=== PATIENT | male | born 1935 | race Hispanic/Latino ===

== ENCOUNTER → 2018-07-29 | Day surgery (SDC) | payer MEDICARE, OTHER ==
[2018-07-27 16:22] LABS: BASOPHILS # (AUTO) 0.1 (0.0-0.1); EOSINOPHILS # (AUTO) 0.1 (0.0-0.4); HEMATOCRIT 41.3 % (38.2-49.6); LYMPHOCYTES # (AUTO) 1.5 (1.0-3.2); LYMPHOCYTES % 19.2 % (18.0-39.1); MEAN CORPUSCULAR HEMOGLOBIN 28.7 pg (28-32); MEAN CORPUSCULAR HGB CONC 31.5 g/dL (31-35); MEAN CORPUSCULAR VOLUME 91.2 fL (81-99); MONOCYTES # (AUTO) 0.6 (0.2-0.8); MONOCYTES % 7.1 % (4.4-11.3); NEUTROPHILS # (AUTO) 5.6 (2.1-6.9); NEUTROPHILS % 71.4 % (38.7-80.0); PLATELET COUNT 160 x10e3/uL (140-360); RED BLOOD COUNT 4.53 x10e6/uL (4.3-5.7); RED CELL DISTRIBUTION WIDTH 14.4 % (11.7-14.4)
--- NOTE | 2018-07-27 16:25 | Diagnostic Imaging Report ---
EXAMINATION: CHEST 2 VIEWS INDICATION: Pre-op for port placement. COMPARISON: None FINDINGS: TUBES and LINES: None. LUNGS: Lungs are well inflated. A 6 mm nodular opacity projects over the left midlung. There is no evidence of pneumonia or pulmonary edema. PLEURA: No pleural effusion or pneumothorax. HEART AND MEDIASTINUM: The cardiomediastinal silhouette is unremarkable. BONES AND SOFT TISSUES: No acute osseous lesion. Soft tissues are unremarkable. UPPER ABDOMEN: No free air under the diaphragm. IMPRESSION: No acute radiographic abnormality. A 6 mm nodular opacity in the left midlung, could reflect a pulmonary nodule. A non-urgent chest CT is suggested for further evaluation. Signed by: Dr. Jj Zarate MD on 07/27/2018 4:22 PM
[2018-07-27 16:38] LABS: ANION GAP 15.6 mmol/L (8-16); BLOOD UREA NITROGEN 15 mg/dL (7-26); BUN/CREATININE RATIO 17 (6-25); CALCIUM 9.3 mg/dL (8.4-10.2); CARBON DIOXIDE 20 mmol/L (22-29); CHLORIDE 107 mmol/L (98-107); EST GLOMERULAR FILTRATION RATE > 60 ML/MIN (60-); GLUCOSE 87 mg/dL (74-118); POTASSIUM 4.6 mmol/L (3.5-5.1); SODIUM 138 mmol/L (136-145)
[~2018-07-29] MED LIST: AMLODIPINE BES2.5 MG PO; ATENOLOL50 MG PO; BUPIVACAINE 0.25% 30ML SDV INJ ONE; DEXAMETHASONE SOD PHOS INJ 4 MG/ML VIAL ONE; EPHEDRINE SULFATE INJ 50 MG/10 ML SYR ONE; FENTANYL CITRATE/PF 100MCG/2 ML INJ ONE; HEPARIN SOD (PORCINE) 5,000 UNIT/ML VIAL ONE; LIDOCAINE HCL 1% LOCAL INJ 20 ML VIAL ONE; LIDOCAINE HCL 2% LOCAL INJ 5 ML SDV VIAL INJ ONE; MIDAZOLAM HCL 2 MG/2 ML VIAL ONE; ONDANSETRON HCL INJ 2 MG/ML VIAL ONE; PROPOFOL IV EMULSION 10 MG/ML 20 ML VIAL ONE; SEVOFLURANE INHAL SOLN 250 ML PEN BTL ONE; SODIUM CHLORIDE 0.9% 500ML 500 ML ONE
--- OUTSIDE RECORDS SUMMARY | 2018-07-29 09:03 | XMS REPORT ---
Author Author [facility] Address Unknown Phone Unavailable Care Team Providers Care Bacteriologist Food Name Role Phone MARCUS COREAS PP Unavailable Jose COTTO Unavailable Unavailable Ryland COREAS Unavailable Unavailable Payers Payer Name Policy Type Policy Number Effective Date Expiration Date Problems This patient has no known problems. Allergies, Adverse Reactions, Alerts Allergy Name Allergy Type Status Severity Reaction(s) Onset Date Inactive Date Treating Clinician Comments No Known Allergies DA Active U 2014-01-19 00:00:00 Medications This patient has no known medications. Encounters Start Date/Time End Date/Time Encounter Type Admission Type Attending Clinicians Care Facility Care Department Encounter ID 2017-06-01 08:59:00 2017-06-01 08:59:00 Outpatient [facility] [id number] Results Test Description Test Time Test Comments Text Results Atomic Results Result Comments CHEST 2 VIEWS 2018-07-27 16:19:00 [facility] [address], [place] [address] Patient Name: RANDY CAMARA MR #: [id number] : 1935 Age/Sex: 82/M Req #: [id number] Adm Physician: Ordered by: BLAZE COTTO MD Report #: [id number] Location: OR Room/Bed: Procedure: [id number] DX/CHEST 2 VIEWS Exam Date: Exam Time: REPORT STATUS: Signed EXAMINATION: CHEST 2 VIEWS INDICATION: Pre-op for port placement. COMPARISON: None FINDINGS: TUBES and LINES: None. LUNGS: Lungs are well inflated. A 6 mm nodular opacity projects over the left midlung. There is no evidence of pneumonia or pulmonary edema. PLEURA: No pleural effusion or pneumothorax. HEART AND MEDIASTINUM: The cardiomediastinal silhouette is unremarkable. BONES AND SOFT TISSUES: No acute osseous lesion. Soft tissues are unremarkable. UPPER ABDOMEN: No free air under the diaphragm. IMPRESSION: No acute radiographic abnormality. A 6 mm nodular opacity in the left midlung, could reflect a pulmonary nodule. A non-urgent chest CT is suggested for further evaluation. Signed by: Dr. Israel Isabel MD on 07/27/2018 4:22 PM Dictated By: ISRAEL ISABEL MD 21 Transcribed By: YOUNG on 07/27/181621 COPY TO: BLAZE COTTO MD Basic Metabolic Panel 2017-05-10 17:20:00 Sodium (test code=NA) 140 mmol/L 135-145 Potassium (test code=K) 4.7 mmol/L 3.5-5.1 Chloride (test code=CL) 102 mmol/L 98-105 Carbon Dioxide (test code=CO2) 26 mmol/L 22-29 Glucose (test code=GLU) 84 mg/dL 70-115 Blood Urea Nitrogen (test code=BUN) 15 mg/dL 8-23 Creatinine (test code=CREAT) 1.0 mg/dL 0.7-1.2 Calcium (test code=CA) 9.3 mg/dL 8.3-10.5 BUN/Creatinine Ratio (test code=BCRATIO) 15.0 Anion Gap (test code=AGAP) 12 mmol/L 7-16 Estimated GFR (test code=GFR) >60 mL/min/1.73m2 eGFR (estimated Glomerular Filtration Rate) is an estimated value,calculated from the patient's serum creatinine using the MDRD equation.It is NOT the patient's actual GFR. The eGFR provides a more clinicallyuseful measure of kidney disease than serum creatinine alone.This calculation takes sex and race into account, if the informationis provided. If the race is not provided, and the patient isAfrican-[place], multiply by 1.212. If sex is not provided, and thepatient is female, multiply by 0.742. Results for patients <18 years ofage have not been validated by the MDRD study and should be interpretedwith caution.eGFR Result Interpretation:eGFR > or=60 is in the Normal RangeeGFR < 60 may mean kidney diseaseeGFR < 15 may mean kidney failureRanges recommended by the National Kidney Foundat ion,http://nkdep.nih.gov CBC with [id number] 17:12:00* Test Item Value Reference Range Comments WBC (test code=WBC) 6.7 K/cumm 4.4-10.5 RBC (test code=RBC) 4.26 M/cumm 4.10-5.70 Hemoglobin (test code=HGB) 12.6 gm/dL 13.4-17.4 Hematocrit (test code=HCT) 39.6 % 38.7-52.0 MCV (test code=MCV) 93.0 fL 80-100 MCH (test code=MCH) 29.6 pg 27.0-32.5 MCHC (test code=MCHC) 31.8 g/dL 32.0-37.5 RDW (test code=RDW) 13.4 % 11.5-14.5 Platelet Count (test code=PLTCT) 168 K/cumm 140-440 MPV (test code=MPV) 10.2 fL Diff Method (test code=DIFFM) Auto Neutrophil (test code=NEUT) 67.9 % 36-70 Lymphocyte (test code=LYMPH) 24.6 % 12-44 Monocyte (test code=MONO) 4.9 % 0-11 Eosinophil (test code=EOS) 1.9 % 0-7 Basophil (test code=BASO) 0.7 % 0-2 Neutro Abs (test code=ANEUT) 4.6 K/cumm 1.6-7.4 Lymph Abs (test code=ALYMPH) 1.6 K/cumm 0.5-4.6 Benson Abs (test code=AMONO) 0.3 K/cumm 0.0-1.2 Eos Abs (test code=AEOS) 0.13 K/cumm 0.00-0.74 Baso Abs (test code=ABASO) 0.1 K/cumm 0.00-0.21 Basic Metabolic [id number] 13:13:00* Test Item Value Reference Range Comments Sodium (test code=NA) 139 mmol/L 135-145 Potassium (test code=K) 3.8 mmol/L 3.5-5.1 Chloride (test code=CL) 101 mmol/L 98-105 Carbon Dioxide (test code=CO2) 26 mmol/L 22-29 Glucose (test code=GLU) 88 mg/dL 70-115 Blood Urea Nitrogen (test code=BUN) 15 mg/dL 8-23 Creatinine (test code=CREAT) 0.8 mg/dL 0.7-1.2 Calcium (test code=CA) 8.8 mg/dL 8.3-10.5 BUN/Creatinine Ratio (test code=BCRATIO) 18.8 Anion Gap (test code=AGAP) 12 mmol/L 7-16 Estimated GFR (test code=GFR) >60 mL/min/1.73m2 eGFR (estimated Glomerular Filtration Rate) is an estimated value,calculated from the patient's serum creatinine using the MDRD equation.It is NOT the patient's actual GFR. The eGFR provides a more clinicallyuseful measure of kidney disease than serum creatinine alone.This calculation takes sex and race into account, if the informationis provided. If the race is not provided, and the patient isAfrican-[place], multiply by 1.212. If sex is not provided, and thepatient is female, multiply by 0.742. Results for patients <18 years ofage have not been validated by the MDRD study and should be interpretedwith caution.eGFR Result Interpretation:eGFR > or=60 is in the Normal RangeeGFR < 60 may mean kidney diseaseeGFR < 15 may mean kidney failureRanges recommended by the National Kidney Foundat ion,http://nkdep.nih.gov CBC with [id number] 13:08:00* Test Item Value Reference Range Comments WBC (test code=WBC) 5.8 K/cumm 4.4-10.5 RBC (test code=RBC) 4.38 M/cumm 4.10-5.70 Hemoglobin (test code=HGB) 12.9 gm/dL 13.4-17.4 Hematocrit (test code=HCT) 38.4 % 38.7-52.0 MCV (test code=MCV) 87.7 fL 80-100 MCH (test code=MCH) 29.4 pg 27.0-32.5 MCHC (test code=MCHC) 33.5 g/dL 32.0-37.5 RDW (test code=RDW) 14.5 % 11.5-14.5 Platelet Count (test code=PLTCT) 146 K/cumm 140-440 MPV (test code=MPV) 9.2 fL Diff Method (test code=DIFFM) Auto Neutrophil (test code=NEUT) 68.1 % 36-70 Lymphocyte (test code=LYMPH) 21.9 % 12-44 Monocyte (test code=MONO) 7.2 % 0-11 Eosinophil (test code=EOS) 2.0 % 0-7 Basophil (test code=BASO) 0.9 % 0-2 Neutro Abs (test code=ANEUT) 3.9 K/cumm 1.6-7.4 Lymph Abs (test code=ALYMPH) 1.3 K/cumm 0.5-4.6 Benson Abs (test code=AMONO) 0.4 K/cumm 0.0-1.2 Eos Abs (test code=AEOS) 0.11 K/cumm 0.00-0.74 Baso Abs (test code=ABASO) 0.1 K/cumm 0.00-0.21
--- NOTE | 2018-07-29 14:14 | Operative Report ---
DATE OF PROCEDURE: July 29, 2018 PREOPERATIVE DIAGNOSIS: Need of intravenous access for chemotherapy. POSTOPERATIVE DIAGNOSIS: Need of intravenous access for chemotherapy. OPERATION PERFORMED: Placement of left subclavian venous access port. ANESTHESIA: General. COMPLICATIONS: None. ESTIMATED BLOOD LOSS: Minimal. DESCRIPTION OF PROCEDURE: With the patient lying in bed in the supine position under good general anesthesia, the left chest and neck were prepped with Betadine solution and draped in the usual manner. The patient was placed in Trendelenburg position and a standard left subclavian venipuncture was performed without any difficulty and a guidewire was advanced into central venous position. Using the C-arm, a guidewire was then examined. The guidewire was actually into the right subclavian vein and was then manipulated into the superior vena cava. After this was done, the catheter was cut to the appropriate length and the Port-A-Cath was fixed to the anterior chest wall with interrupted sutures of 2-0 Vicryl. The catheter was threaded to the subclavian position and the reservoir and catheter were fully heparinized. Peel-away sheath was placed over the catheter and the catheter was threaded through the peel-away sheath. The peel-away sheath was removed. There was good blood return and the reservoir and catheter were fully heparinized. Using the C-arm, the tip of the catheter was confirmed to be at level of the superior vena cava and the left lung was fully expanded. The wounds were then closed in layers. The subcutaneous tissue was approximated with 3-0 and 4-0 Vicryl and the skin was closed with subcuticular 5-0 Vicryl. Benzoin, Steri-Strips and dressings were applied. The sponge, lap needle count was correct. The patient tolerated the procedure well and returned to the recovery room in stable condition. Job#: [id number] GUZMAN
[2018-07-29 14:40] VITALS: BP 141/67
== END | disposition home or self-care (01) ==
LOC: OR 09:00
PROVIDERS: ATTEND Surgery
DX: C18.9 Malignant neoplasm of colon, unspecified (principal); I25.10 Atherosclerotic heart disease of native coronary artery without angina pectoris; Z95.5 Presence of coronary angioplasty implant and graft; I25.2 Old myocardial infarction; I10 Essential (primary) hypertension; Z01.810 Encounter for preprocedural cardiovascular examination; Z01.812 Encounter for preprocedural laboratory examination; Z01.811 Encounter for preprocedural respiratory examination
CPT/HCPCS: 36415; 36561; 71046; 77001; 80048; 85025; 93005; C1751; J1100; J1644; J2001; J2250; J2405; J2704; J7040